=== PATIENT | female | born 1975 | race Two or more races ===

== ENCOUNTER 2020-11-04 13:25 | Emergency (ER) | payer SELFPAY ==
[2020-11-04 16:12] VITALS: BP 126/81
[2020-11-04] MEDS ORDERED: ACETAMINOPHEN 500 MG TAB PO ONE (16:30)
== END 2020-11-04 17:39 | disposition home or self-care (01) ==
LOC: ER 13:25
DX: R51.9 Headache, unspecified (principal); K21.9 Gastro-esophageal reflux disease without esophagitis; J45.909 Unspecified asthma, uncomplicated
CPT/HCPCS: 70450